=== PATIENT | female | born 1950 | race Caucasian/White ===

== ENCOUNTER 2019-09-13 04:59 | Emergency (ER) | payer MEDICARE, BC ==
[~2019-09-13] VITALS: Ht 162.6 cm; Wt 86.6 kg
--- NOTE | ~2019-09-13 | EKG ---
[facility] [address] [facility] [place], [place] [address] Draft EKG completed, results pending confirmation PATIENT NAME: DALLAS MIKE SILAS Electrocardiogram DATE OF : 50 PHYSICIAN: PRELIMINARY REPORT #: [id number] REPORT IS CONFIDENTIAL AND NOT TO BE RELEASED WITHOUT AUTHORIZATION
[2019-09-13] MEDS ORDERED: ZOLOFT25 MG PO (05:13)
[2019-09-13] MEDS ORDERED: AMLODIPINE BESY10 MG PO (05:14)
--- NOTE | 2019-09-13 06:40 | EKG ---
[facility] [address] [facility] [place], [place] [address] Signed Sinus rhythm with 1st degree AV block Low voltage QRS Septal infarct (cited on or before 13-SEP-2019) Possible Lateral infarct (cited on or before 13-SEP-2019) Abnormal ECG When compared with ECG of 13-SEP-2019 05:13, (Unconfirmed) No significant change was found Confirmed by CULLEN BOONE MD ([id number] on 09/13/2019 6:40:20 AM Electronically Signed By: CULLEN BOONE MD 09/13/19 0640 PATIENT NAME: DALLAS MIKE Electrocardiogram DATE OF : 50 PHYSICIAN: CULLEN BOONE MD REPORT #: [id number] REPORT IS CONFIDENTIAL AND NOT TO BE RELEASED WITHOUT AUTHORIZATION
== END 2019-09-13 06:51 | disposition home or self-care (01) ==
LOC: ED 04:59
DX: R20.2 Paresthesia of skin (principal); I10 Essential (primary) hypertension
CPT/HCPCS: 71045; 80053; 81001; 84484; 85025; 93005; 93010; 93971; 99285-25